=== PATIENT | male | born 1995 | race African-American/Black ===

== ENCOUNTER 2018-03-27 02:20 | Emergency (ER) | payer MEDICAID ==
[~2018-03-27] VITALS: Ht 167.6 cm; Wt 64.0 kg
[2018-03-27] MEDS ORDERED: PREDNISONE 20MG TABLET PO STA (03:24)
[2018-03-27] MEDS ORDERED: ALBUTEROL (0.083%) 2.5MG/3ML NEB HHN STA (03:24)
[2018-03-27] MEDS ORDERED: IPRATROPIUM BROMIDE (0.02%) 0.5MG/2.5ML NEB HHN STA (03:24)
[2018-03-27 06:06] VITALS: BP 107/56
== END 2018-03-27 06:06 | disposition home or self-care (01) ==
LOC: ER 02:20
DX: J45.901 Unspecified asthma with (acute) exacerbation (principal); F17.200 Nicotine dependence, unspecified, uncomplicated; F12.10 Cannabis abuse, uncomplicated
CPT/HCPCS: 94640; 99285; J7512; J7611